=== PATIENT | female | born 1990 | race Hispanic/Latino ===

== ENCOUNTER 2016-10-22 22:20 | Emergency (ER) | payer OTHER ==
[~2016-10-22] VITALS: Ht 149.9 cm; Wt 59.1 kg
[~2016-10-22 22:20] MED LIST: DOCU-41 PO; IBUP-1827 PO; LABE100T4 PO; LORA10CA PO; OXYC5CAP4 PO
[2016-10-22 22:22] VITALS: BP 160/93; PULSE 66; RESP 16; O2SAT 100
[2016-10-22 22:41] VITALS: BP 138/84; PULSE 58; RESP 18; O2SAT 98
--- NOTE | 2016-10-22 22:55 | ED.REPORT ---
HPI-Allergic Reaction Date of Service Oct 22, 2016 ED Provider: Dr. Gotti Pt is a 26 year old female who presents to the ED with concerns for intractable nausea, vomiting and dizziness. She reports that she took a pain medication for dental pain, and immediately afterwards, she began feeling dizzy and nauseated. She denies any swelling to her throat or tongue, or any rash. She has no other complaints. Nursing Notes Stated Complaint: ALLERGIC REACTION Chief Complaint: Allergic Reaction Nursing Notes Reviewed: Yes Allergies: Coded Allergies: shellfish derived (Verified Allergy, Intermediate, Anaphylaxis, 02/16/15) No Known Allergies (Verified Allergy, Unknown, 09/04/13) Scheduled Labetalol (Labetalol) 100 Mg Tablet 100 MG PO BID Loratadine (Claritin) 10 Mg Capsule 10 MG PO DAILY Scheduled PRN Docusate Sodium (Colace) 100 Mg Capsule 100 MG PO BID PRN PRN For Constipation Ibuprofen (Ibuprofen) 600 Mg Tablet 600 MG PO Q6H PRN PRN For Pain oxyCODONE (oxyCODONE) 5 Mg Capsule 5-10 MG PO Q4H PRN PRN For Pain General Time Seen by MD: 22:55 Chief Complaint Allergic reaction Hx Obtained From: Patient Arrived By: Walk-in Onset Occurred: Just prior to arrival Symptom Duration: Since onset Severity: Current: No pain currently Severity: Maximum: No pain Similar Sx Previous: Yes Past Medical History Smoking History Unknown if Ever Smoker Ambulatory Status Independent Review of Systems Constitutional: Denies: Chills, Fever, Malaise, Weakness - generalized Respiratory: Denies: Non-productive cough, Shortness of breath, Wheezing GI: Reports: Nausea, Vomiting, Denies: Abdominal pain, Constipation, Diarrhea Neurologic: Reports: Dizziness Complete sys rev & neg: except as marked. Physical Exam Initial Vital Signs Vital Signs (First) Date Time Temp Pulse Resp B/P Pulse Ox O2 Delivery O2 Flow Rate FiO2 10/22/16 22:22 37.0 66 16 160/93 100 Room Air Initial VS: Reviewed Head / Eyes: Atraumatic, Normocephalic, PERRL ENT: Mucous membranes moist, Conjunctiva normal, No scleral icterus Neck: Supple, Non-tender, Full range of motion Abdomen / GI: Soft, Non-tender, No guarding, No rebound, No distention Neurologic: Alert, Oriented, Nonfocal General/Constitutional: Awake, Alert, Well appearing Respiratory / Chest: Breath sounds NL, Breath sounds = bilat, No respiratory distress, No rales, No rhonchi, No wheezing, No retractions, No stridor Cardiovascular: Heart rate NL, Regular rhythm, Heart sounds NL, Peripheral circulation NL Skin: Color NL, No rash, Warm, Dry, Turgor NL, No swelling Re-Eval/Medical Decision Med Decision/Clinical Course Good relief with the medications. No signs of anaphylaxis. Adverse drug reaction most likely. Will provide Zofran for nausea and recommend she readdress analgesia with her provider. Discharged in stable condition significantly improved Source of Hx: Old records Re-Evaluation/Progress : Time of Eval: 00:24 Re-Evaluation/Progress Note: Pt is rechecked and informed of her diagnosis and the plan to discharge her at this time. Counseled Regarding: Diagnosis, Lab results, Need for follow-up, When/why to return to ED Discharge & Departure Primary Impression: Adverse drug reaction Encounter type: initial encounter Qualified Code: T88.7XXA - Unspecified adverse effect of drug or medicament, initial encounter Disposition: Home Discharge Condition All VS Reviewed: Yes Condition: Stable Additional Instructions: Stop taking the hydrocodone. Take the Zofran every 8 hours as needed for nausea. Follow up with your primary care provider later this week. Return to the emergency department with any worsening or concerning symptoms. Referrals: Gorge Douglas DO (PCP) Nathanael Attestation Portions of this note were transcribed by Carlota Casey. I, Dr. Gotti personally performed the history, physical exam and medical decision-making; I reviewed and confirmed the accuracy of the information in the transcribed note. Signed by: Nathanael Oswald, 10/22/2016 [Time]. copies to: Gorge Douglas Todd P DO Oct 22, 2016 22:55 LLOYD CASEY Oct 22, 2016 23:01
[2016-10-22] MEDS ORDERED: Ondansetron 8 mg ODT Tablet PO ONE (23:00)
[2016-10-22] MEDS ORDERED: Dexamethasone 10 mg/mL Inj IM ONE (23:00)
[2016-10-23 00:32] VITALS: BP 129/79; PULSE 62; RESP 18; O2SAT 98
== END 2016-10-23 00:33 | disposition home or self-care (01) ==
LOC: SED 22:20
DX: R11.2 Nausea with vomiting, unspecified (principal); R42 Dizziness and giddiness; T40.2X5A Adverse effect of other opioids, initial encounter; X58.XXXA Exposure to other specified factors, initial encounter; Y93.89 Activity, other specified; Y99.8 Other external cause status; Y92.89 Other specified places as the place of occurrence of the external cause
CPT/HCPCS: 96372; 99284; J1100; J1200